=== PATIENT | female | born 1950 | race Caucasian/White ===

== ENCOUNTER 2023-06-16 13:40 | Outpatient (CLI) | payer MEDICARE, OTHER ==
[2023-06-16 15:15] LABS: #Monocytes 0.1 10x3/uL (0.0-1.1); #Neutrophils 3.4 10x3/uL (1.5-8.4); %Basophils 0.8 % (0.0-2.0); %Eosinophils 0.5 % (0.0-6.0); %Lymphocytes 11.2 % (18.0-47.0); %Monocytes 1.5 % (0.0-10.0); %Neutrophils 85.7 % (40.0-75.0); Hematocrit 39.1 % (34.9-44.5); Hemoglobin 13.1 g/dL (12.0-15.5); Mean Corpuscular HGB CONC 33.5 g/dL (32.0-36.0); Mean Corpuscular Hemoglobin 31.4 pg (27.0-33.0); Mean Corpuscular Volume 93.8 fl (81.6-98.3); Mean Platelet Volume 8.3 fl (7.4-10.4); Platelet Count 198 10x3/uL (150-450); RBC Distribution Width 12.6 % (11.5-14.5); Red Blood Cell (RBC) Count 4.17 10x6/uL (3.90-5.03); White Blood Cell (WBC) Count 3.9 10x3/uL (3.5-10.5)
[2023-06-16 15:27] LABS: Anion Gap 14 mmol/L (10-20); BUN (Urea Nitrogen) 16 mg/dL (9.8-20.1); Calc. Creatinine Clearance 0 mL/min (70-130); Calcium 9.7 mg/dL (7.8-10.44); Carbon Dioxide 26 mmol/L (23-31); Chloride 103 mmol/L (98-107); Estimated GFR 53; Glucose 106 mg/dL (83-110); Potassium 3.9 mmol/L (3.5-5.1); Sodium 139 mmol/L (136-145)
== END 2023-06-16 13:41 | disposition home or self-care (01) ==
LOC: LABBT 13:40
PROVIDERS: ATTEND Surgery
DX: Z01.818 Encounter for other preprocedural examination (principal); C50.912 Malignant neoplasm of unspecified site of left female breast
CPT/HCPCS: 80048; 85025; 93005; 93010

== ENCOUNTER 2023-06-21 06:50 | Day surgery (SDC) | payer MEDICARE, OTHER ==
[2023-06-16 14:29] VITALS: BMI 21.4
[2023-06-21] MEDS ORDERED: Lidocaine 1% PF 5 ML VIAL ONE ×3 (09:19→12:54)
[2023-06-21] MEDS ORDERED: Sodium Bicarbonate 2.5 MEQ/5 ML VIAL ONE (09:19)
[2023-06-21] MEDS ORDERED: PROPOFOL 20 ML ONE (09:57)
[2023-06-21] MEDS ORDERED: fentaNYL PF 100 MCG/2 ML SYRINGE ONE ×2 (10:01→12:49)
[2023-06-21] MEDS ORDERED: EPINEPHrine 1 MG/ML VIAL ONE (10:12)
[2023-06-21] MEDS ORDERED: Lidocaine 2% PF 5 ML VIAL ONE ×2 (10:12→10:15)
[2023-06-21] MEDS ORDERED: Bupivacaine 0.25% HCL 30 ML VIAL ONE (10:12)
[2023-06-21] MEDS ORDERED: Methylene Blue 50 MG/10 ML AMPUL ONE (10:12)
[2023-06-21] MEDS ORDERED: fentaNYL 50 mcg/mL 1 mL Vial ONE ×2 (12:20→14:11)
[2023-06-21] MEDS ORDERED: Sodium Chloride 0.9% 100 ML ONE (12:42)
[2023-06-21] MEDS ORDERED: CEFAZOLIN 2 GM VIAL ONE (12:42)
[2023-06-21] MEDS ORDERED: PROPOFOL 200 MG/20 ML VIAL ONE (12:54)
[2023-06-21] MEDS ORDERED: Dexamethasone 20 MG/5 ML VIAL ONE (12:54)
[2023-06-21] MEDS ORDERED: Ondansetron PF 4 MG/2 ML Vial ONE ×2 (12:54→13:18)
[2023-06-21] MEDS ORDERED: Dexamethasone 4 mg/ml Vial ONE (13:18)
[2023-06-21] MEDS ORDERED: HYDROmorphone 0.5 MG/0.5 ML SYRINGE ONE (14:30)
[2023-06-21] MEDS ORDERED: HYDROcodone/Acetaminophen 5/325 mg Tablet ONE (15:11)
== END 2023-06-21 16:21 | disposition home or self-care (01) ==
LOC: SDC 06:50
PROVIDERS: ATTEND Surgery
PROC: 0HBU0ZZ Excision of Left Breast, Open Approach (ICD-10-PCS; principal; 2023-06-21)
DX: C50.912 Malignant neoplasm of unspecified site of left female breast (principal); J45.909 Unspecified asthma, uncomplicated; Z85.820 Personal history of malignant melanoma of skin; Z79.82 Long term (current) use of aspirin
CPT/HCPCS: 19281; 19285; 19301; 38525; 76098; 78195; A9541; J0171; J3010; Q9968; 88307; 88342; A4648; J1100; J1170; J2001; J2405; J2704; J3490; S0020